=== PATIENT | male | born 1995 | race Caucasian/White ===

== ENCOUNTER 2020-10-11 08:13 | Emergency (ER) | payer BC, SELFPAY ==
[2020-10-11 08:24] VITALS: BP 130/72; PULSE 83; RESP 20; TEMP 37.3; O2SAT 100
--- NOTE | 2020-10-11 08:43 | ED.SKABFB ---
HPI - Skin/Abscess/Foreign Bdy General Chief complaint: Skin/Abscess/Foreign Body Stated complaint: Allergic reaction on skin Time Seen by Provider: 10/11/20 08:32 Source: patient and RN notes reviewed Mode of arrival: ambulatory Limitations: no limitations History of Present Illness HPI narrative: Patient presents today complaining of poison shabana to the bilateral legs, arms, neck, and low back. States he came into contact with the poison shabana 5 days ago when he was outside, with the rash did not start until 3 days ago. It has been worsening significantly since onset. 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 He has been using some clear calamine lotion, which does provide some mild relief. MD complaint: rash Related Data Allergies Allergy/AdvReac Type Severity Reaction Status Date / Time No Known Allergies Allergy Verified 10/11/20 08:33 Review of Systems Review of Systems: Narrative: CONSTITUTIONAL: Denies body aches, fever, chills, or sweats. EYES: Denies visual changes, redness, or discharge. ENT: Denies rhinorrhea, congestion, sore throat, or otalgia. CARDIOVASCULAR: Denies chest pain, palpitations, or edema. RESPIRATORY: Denies cough or dyspnea. GASTROINTESTINAL: Denies abdominal pain, nausea, vomiting, or diarrhea. GENITOURINARY: Denies dysuria or hematuria. SKIN: Denies wounds. + Pruritic rash MUSCULOSKELETAL: Denies back pain, joint pain, or myalgia. NEUROLOGIC: Denies headache, numbness, tingling, or weakness. PSYCH: Denies depression or anxiety. PMFSH Comments At time of signature, I have reviewed and agree with nursing past medical, surgical, social and family history unless otherwise noted. Please see nursing chart for further information. There is no relevant family history pertinent to the presenting complaint Exam Narrative: Exam Narrative: GENERAL: Well-appearing, well-nourished, and in no acute distress. HEAD: Normocephalic, atraumatic. EYES: EOMI. No redness or drainage. Conjunctivae normal. ENT: Mucous membranes pink and moist. NECK: Normal AROM. CHEST: No respiratory distress. EXTREMITIES: Normal range of motion. No edema. SKIN: Warm, dry. Capillary refill normal. Normal skin turgor. Widespread erythematous maculopapular vesicular rash covering the bilateral ankles and lower legs extending to the posterior upper legs bilaterally, bilateral forearms, anterior neck and chest, and low back, consistent with poison shabana dermatitis. NEURO: No focal deficits. Alert and oriented x3. Gait steady. PSYCH: Normal affect. No signs of depression or anxiety. Course Vital Signs Vital signs: Vital Signs Temperature 99.2 F 10/11/20 08:24 Pulse Rate 83 10/11/20 08:24 Respiratory Rate 20 10/11/20 08:24 Blood Pressure 130/72 10/11/20 08:24 Pulse Oximetry 100 10/11/20 08:24 Temperature 99.2 F 10/11/20 08:24 Pulse Rate 83 10/11/20 08:24 Respiratory Rate 20 10/11/20 08:24 Blood Pressure 130/72 10/11/20 08:24 Pulse Oximetry 100 10/11/20 08:24 Reviewed. Pt has been instructed to follow up with his PCP regarding his elevated blood pressure today. MDM - Skin/Abscess/Foreign Bdy Differential Diagnosis Differential diagnosis: Likely abscess of skin or subcutaneous tissue, viral exanthem, urticaria, cellulitis, eczema, insect bites, impetigo and contact dermatitis Critical Care Time Critical Care Time Critical Care Time: No Discharge Plan Discharge Clinical Impression: Poison shabana dermatitis Patient Disposition: Home, Self-Care Condition: Stable Instructions: Poison Shabana (ED) Additional Instructions: Please take the prednisone as prescribed until gone. For itching, you may take an antihistamine such as Benadryl, Zyrtec, Claritin, or Shyanne. You may also continue the calamine lotion as needed. Stay inside out of the heat as much as possible. Follow-up with your PCP in 3 to 4 days if symptoms are not starting to improve.
== END 2020-10-11 08:56 | disposition home or self-care (01) ==
PROVIDERS: Emergency Provider Nurse Practitioner
DX: L23.7 Allergic contact dermatitis due to plants, except food (principal)
CPT/HCPCS: 99213; G0463